=== PATIENT | female | born 1940 | race American Indian/Alaskan Native ===

== ENCOUNTER 2017-12-04 19:08 | Emergency (ER) | payer MEDICARE, OTHER ==
[2017-12-04 19:53] VITALS: BP 118/68
--- NOTE | 2017-12-04 20:58 | EDM.PDOC ---
ED HPI GENERAL MEDICAL PROBLEM - General Chief Complaint: Genitourinary Problem Stated Complaint: BLOOD IN CATHETER Time Seen by Provider: 12/04/17 20:45 Source of Information: Reports: Patient History Limitations: Reports: No Limitations - History of Present Illness INITIAL COMMENTS - FREE TEXT/NARRATIVE: This 77 yo female patient reports to the ED from the [facility] due to blood in her urine. The patient reports she has been reporting to the [facility] staff that her catheter has not been draining. Finally (after 12 hours), the patient's catheter was flushed and blood was discovered in her urine. The patient is on Doxycycline for UTI's. The patient reports she has been dealing with the UTI for months, but has not had any resolution of her symptoms. Onset: Today Duration: Constant Location: Reports: Other Quality: Reports: Other Severity: Moderate Improves with: Reports: None Worsens with: Reports: None Associated Symptoms: Reports: No Other Symptoms Left Lower Abdomen Pain Score (Numeric/FACES): 2 - Related Data Allergies Allergy/AdvReac Type Severity Reaction Status Date / Time doxycycline Allergy Intermediate UNKNOWN Verified 11/19/16 18:07 tetracycline Allergy Intermediate UNKNOWN Verified 11/19/16 18:07 amoxicillin Allergy Mild UNKNOWN Verified 11/19/16 18:07 furosemide [From Lasix] Allergy Mild UNKNOWN Verified 11/19/16 18:07 Penicillins Allergy Mild Hives Verified 11/19/16 18:07 phenytoin Allergy Mild UNKNOWN Verified 11/19/16 18:07 simvastatin Allergy Mild UNKNOWN Verified 11/19/16 18:07 Sulfa (Sulfonamide Allergy Mild unknown Verified 11/19/16 18:07 Antibiotics) Corticosteroids Allergy Unknown unknown Verified 11/19/16 18:07 (Glucocorticoids) ibuprofen AdvReac Intermediate ANXIETY, Verified 11/19/16 18:07 INTOLERANCE meperidine HCl [From Demerol] AdvReac Intermediate CONFUSION, Verified 11/19/16 18:07 INTOLERANCE morphine AdvReac Intermediate Change Verified 11/19/16 18:07 Mental Status propoxyphene HCl AdvReac Intermediate CONFUSION, Verified 11/19/16 18:07 [From Darvon] INTOLERANCE zolpidem [From Ambien] AdvReac Intermediate unknown Verified 11/19/16 18:07 erythromycin Allergy Intermediate UNKNOWN Uncoded 11/19/16 18:07 nitrofurantoin monohydrate Allergy Intermediate UNKNOWN Uncoded 11/19/16 18:07 macrocry codeine phosphate AdvReac Intermediate CONFUSION, Uncoded 11/19/16 18:07 INTOLERANCE naproxen sodium AdvReac Mild ANXIETY, Uncoded 11/19/16 18:07 INTOLERANCE propoxyphene hcl AdvReac CONFUSION, Uncoded 11/19/16 18:00 INTOLERANCE Home Meds: Home Meds Acetaminophen [Tylenol] 650 mg PO Q6H PRN MDD 2 PRN doses 04/29/16 [History] Metoprolol Tartrate [Lopressor] 12.5 mg PO BID 04/29/16 [History] Pantoprazole [ProTONIX] 40 mg PO BIDAC 04/29/16 [History] atorvaSTATin [Lipitor] 20 mg PO BEDTIME 04/29/16 [History] Acetaminophen [Tylenol] 650 mg PO TID 11/19/16 [History] Trolamine Salicylate/Aloe Vera [Aspercreme 10% Cream] 1 applic TOP BID 11/19/16 [History] Warfarin [Coumadin] 1.25 mg PO .MONFRI 11/19/16 [History] Warfarin [Coumadin] 2.5 mg PO .SUNTUWEDTHSAT 11/19/16 [History] Past Medical History HEENT History: Reports: Cataract Cardiovascular History: Reports: Afib, Arrhythmia, Blood Clots/VTE/DVT, Heart Failure Respiratory History: Reports: PE, SOB Gastrointestinal History: Reports: GERD, Hepatitis Genitourinary History: Reports: UTI, Recurrent [employer] History: Reports: Musculoskeletal History: Reports: Arthritis, Fracture, Osteoporosis Neurological History: Reports: CVA, Other (See Below) Other Neuro History: Left druze stress epilepsy. Psychiatric History: Reports: Anxiety, Depression Other Immunologic History: Hep B - Infectious Disease History Infectious Disease History: Reports: Chicken Pox, Hepatitis B, Measles, Mumps, Rubella, Shingles - Past Surgical History HEENT Surgical History: Reports: Adenoidectomy, Cataract Surgery, Tonsillectomy Cardiovascular Surgical History: Reports: Coronary Artery Stent Other Respiratory Surgeries/Procedures: IVC filter GI Surgical History: Reports: EGD Other Musculoskeletal Surgeries/Procedures:: wrist fracture right, right arm below elbow, toes-no surgery with these. Social & Family History - Family History Family Medical History: Noncontributory - Tobacco Use Smoking Status *Q: Unknown Ever Smoked - Caffeine Use Caffeine Use: Reports: None - Recreational Drug Use Recreational Drug Use: No - Living Situation & Occupation Living situation: Reports: Occupation: Retired ED ROS GENERAL - Review of Systems Review Of Systems: ROS reveals no pertinent complaints other than HPI. ED EXAM, RENAL/ - Physical Exam Exam: See Below Exam Limited By: No Limitations General Appearance: Alert, WD/WN, Mild Distress Eye Exam: Bilateral Eye: EOMI, Normal Inspection, PERRL Ears: Normal External Exam, Normal Canal, Hearing Grossly Normal, Normal TMs Nose: Normal Inspection, Normal Mucosa, No Blood Throat/Mouth: Normal Inspection, Normal Lips, Normal Teeth, Normal Gums, Normal Oropharynx, Normal Voice, No Airway Compromise Head: Atraumatic, Normocephalic Neck: Normal Inspection, Supple, Non-Tender, Full Range of Motion Respiratory/Chest: No Respiratory Distress, Lungs Clear, Normal Breath Sounds, No Accessory Muscle Use, Chest Non-Tender Cardiovascular: Normal Peripheral Pulses, Regular Rate, Rhythm, No Edema, No Gallop, No JVD, No Murmur, No Rub GI/Abdominal: Normal Bowel Sounds, Soft, Non-Tender, No Organomegaly, No Distention, No Abnormal Bruit, No Mass (Female) Exam: Deferred Rectal (Female) Exam: Deferred Back Exam: Normal Inspection, Full Range of Motion, NT Extremities: Normal Inspection, Normal Range of Motion, Non-Tender, Normal Capillary Refill, No Pedal Edema Neurological: Alert Psychiatric: Normal Affect, Normal Mood Skin Exam: Warm, Dry, Intact, Normal Color, No Rash Lymphatic: No Adenopathy Course - Vital Signs Last Recorded V/S: Last Vital Signs Temp 36.8 C 12/04/17 19:50 Pulse 110 H 12/04/17 19:50 Resp 20 12/04/17 19:50 BP 118/68 12/04/17 19:50 Pulse Ox 97 12/04/17 19:50 - Orders/Labs/Meds Orders: Active Orders 24 hr Category Date Time Status CULTURE URINE [RM] Stat Lab 12/04/17 20:40 Ordered UA W/MICROSCOPIC [URIN] Stat Lab 12/04/17 20:40 Ordered Labs: Laboratory Tests 12/04/17 12/04/17 12/04/17 Range/Units 20:40 21:04 21:04 WBC 7.7 (5.0-10.0) 10^3/uL RBC 4.54 (4.2-5.4) 10^6/uL Hgb 11.8 L D (12.0-16.0) g/dL Hct 37.4 (37.0-47.0) % MCV 82.4 (80-100) fL MCH 26.0 L (27.0-34.0) pg MCHC 31.6 L (33.0-35.0) g/dL Plt Count 314 D (150-450) 10^3/uL Neut % (Auto) 54.0 (42.2-75.2) % Lymph % (Auto) 26.1 (20.5-50.1) % Divide % (Auto) 13.7 H (2-8) % Eos % (Auto) 5.5 H (1.0-3.0) % Baso % (Auto) 0.7 (0.0-1.0) % Sodium 133 L (135-145) mmol/L Potassium 4.1 (3.6-5.0) mmol/L Chloride 100 L (101-111) mmol/L Carbon Dioxide 25.0 (21.0-31.0) mmol/L Anion Gap 12.1 BUN 13 (7-18) mg/dL Creatinine 0.6 (0.6-1.3) mg/dL Est Cr Clr Drug Dosing 62.10 mL/min Estimated GFR (MDRD) > 60 BUN/Creatinine Ratio 21.66 Glucose 499 H* (74-105) mg/dL Calcium 9.0 (8.4-10.2) mg/dl Total Bilirubin 1.3 H (0.2-1.0) mg/dL AST 129 H (10-42) IU/L ALT 116 H (10-60) IU/L Alkaline Phosphatase 105 (42-121) IU/L Total Protein 6.4 L (6.7-8.2) g/dl Albumin 3.1 L (3.2-5.5) g/dl Globulin 3.3 Albumin/Globulin Ratio 0.94 Urine Color Light yellow (YELLOW) Urine Appearance Cloudy (CLEAR) Urine pH 6.5 (5.0-9.0) Ur Specific [place] 1.010 (1.005-1.030) Urine Protein 100 H (NEGATIVE) Urine Glucose (UA) 500 H (NEGATIVE) Urine Ketones Negative (NEGATIVE) Urine Occult Blood Moderate H (NEGATIVE) Urine Nitrite Negative (NEGATIVE) Urine Bilirubin Negative (NEGATIVE) Urine Urobilinogen 0.2 (0.2-1.0) mg/dL Ur Leukocyte Esterase Small H (NEGATIVE) Urine RBC >100 H /HPF Urine WBC >100 H (0-5/HPF) /HPF Ur Epithelial Cells Few /HPF Urine Bacteria Many H (0-FEW/HPF) /HPF Departure - Departure Time of Disposition: 22:00 Disposition: Home, Self-Care 01 Condition: Fair Clinical Impression: UTI, Urinary tract infectious disease Hematuria Qualifiers: Hematuria type: unspecified type Qualified Code(s): R31.9 - Hematuria, unspecified - Discharge Information Instructions: Urinary Tract Infection, Adult, [facility]ry[facility] Forms: ED Department Discharge Care Plan Goals: The patient was advised of the examination and lab results during the visit. The patient should continue on her current medications as prescribed. There was a urine culture ordered and the patient's antibiotics may be changed based on the culture results. If the patient has any additional symptoms or concerns, the patient should follow-up with her primary care provider or return to the emergency department. - My Orders Last 24 Hours: My Active Orders 12/04/17 20:40 CULTURE URINE [RM] Stat UA W/MICROSCOPIC [URIN] Stat - Assessment/Plan Last 24 Hours: My Active Orders 12/04/17 20:40 CULTURE URINE [RM] Stat UA W/MICROSCOPIC [URIN] Stat
[2017-12-04 21:34] LABS: CHLORIDE,CL 100 mmol/L (101-111); SODIUM,NA 133 mmol/L (135-145)
== END 2017-12-04 22:31 | disposition home or self-care (01) ==
LOC: DL.ED 19:08
DX: N39.0 Urinary tract infection, site not specified (principal); K21.9 Gastro-esophageal reflux disease without esophagitis; Z88.1 Allergy status to other antibiotic agents; Z88.0 Allergy status to penicillin; Z88.2 Allergy status to sulfonamides; Z88.6 Allergy status to analgesic agent; Z88.8 Allergy status to other drugs, medicaments and biological substances; Z88.5 Allergy status to narcotic agent; Z79.899 Other long term (current) drug therapy
CPT/HCPCS: 36415; 80053; 81001; 85025; 87086; 87088; 87186; 99283

== ENCOUNTER 2019-04-21 06:30 | Day surgery (SDC) | payer MEDICAID ==
[~2019-04-21 06:30] MED LIST: Dextrose 5%-0.45% NaCl 1,000 ML IV SCH; Midazolam 1 MG/ML 2 ML SDV ONE; Sodium Chloride 0.9% 10 ML Syringe FLUSH PRN; fentaNYL 100 MCG/2 ML SDV ONE
[2019-04-21] MEDS ORDERED: Midazolam 1 MG/ML 2 ML SDV IV ONE ×3 (06:31→08:03)
[2019-04-21] MEDS ORDERED: fentaNYL 100 MCG/2 ML SDV IV ONE ×3 (06:31→07:54)
--- NOTE | 2019-04-21 11:20 | OR ---
DATE: 04/21/2019 PROCEDURE: Total colonoscopy. INSTRUMENT USED: PCF-H190DL Olympus video colonoscope. PREMEDICATIONS: Fentanyl 100 mcg intravenous, Versed 2 mg intravenous, nasal O2 cannula. The procedure was done under pulse oximetry, BP recording, and ekg monitor tech. INDICATION: The patient with previous colon cancer surgery and permanent colostomy. Colonoscopic examination is done for detection of any polypoid lesions and removal, endoscopic hemostasis therapy if needed. PROCEDURE IN DETAIL: The colostomy site was found to be unremarkable. The colonoscope was passed with ease up to the ileocecal area. Photographs were taken of the normal-appearing cecum identified by appendiceal orifice and double- bulged ileocecal folds. No bleeding was noted from any of the visualized areas at the commencement of the examination. The bowel preparation was found to be adequate, [place] scale 2 in all the regions. There was moderate amount of liquid as well as some semi-liquid fecal material that had to be aspirated. No stricture. No vascular ectasia. No large isolated ulcerations seen. No evidence of diffuse inflammatory bowel disease in the form of friability, contact bleeding, or ulcerations. No polyp or tumor mass identified. Probing the proximal sides of folds and flexures using adequate distention and clearing up the stool material, withdrawal of the scope was made. No bleeding was noted from any of the visualized areas at the completion of examination. IMPRESSION: Normal study. The patient tolerated the procedure well. [facility] /[id number]
[2019-04-21 13:07] VITALS: BP 139/52; PULSE 78
== END 2019-04-21 12:00 | disposition home or self-care (01) ==
LOC: DL.ENDO 06:30
PROVIDERS: ATTEND Internal Medicine Gastroenterology
DX: R10.9 Unspecified abdominal pain (principal); R14.0 Abdominal distension (gaseous); I25.10 Atherosclerotic heart disease of native coronary artery without angina pectoris; I10 Essential (primary) hypertension; E78.5 Hyperlipidemia, unspecified; G20 Parkinson's disease; M19.90 Unspecified osteoarthritis, unspecified site; N81.4 Uterovaginal prolapse, unspecified; Z93.3 Colostomy status; Z95.5 Presence of coronary angioplasty implant and graft; Z85.038 Personal history of other malignant neoplasm of large intestine
CPT/HCPCS: 82962; G0121; J2250; J3010; J7042

== ENCOUNTER 2021-01-04 07:19 | Emergency (ER) | payer MEDICAID, MEDICARE ==
[2021-01-04] MEDS ORDERED: Succinylcholine 200 MG/10 ML MDV IV ONE (07:20)
[2021-01-04] MEDS ORDERED: EPINEPHrine 1:10,000 1 MG/10 ML Syringe IV ONE (07:20)
[2021-01-04] MEDS ORDERED: Sodium Bicarbonate 8.4% 50 MEQ/50 ML Syringe IV ONE (07:20)
[2021-01-04] MEDS ORDERED: EPINEPHrine 1 MG/ML SDV ONE (07:43)
[2021-01-04 07:49] LABS: PTT,PARTIAL THROMBOPLSTIN TIME 57.5 SEC (22.0-34.0)
[2021-01-04 07:53] LABS: ANION GAP 35.9 mEq/L (7-13); CHLORIDE,CL 100 mmol/L (98-107); SODIUM,NA 142 mmol/L (136-145)
--- NOTE | 2021-01-04 07:59 | EDM.PDOC ---
ED HPI GENERAL MEDICAL PROBLEM - General Chief Complaint: Cardiovascular Problem Stated Complaint: IN BY AMBULANCE Time Seen by Provider: 01/04/21 07:19 Source of Information: Reports: EMS, RN, RN Notes Reviewed History Limitations: Reports: Altered Mental Status - History of Present Illness INITIAL COMMENTS - FREE TEXT/NARRATIVE: Keyanna is an 80 y/o female who presents to the ED via [facility] s/p CPR with ROSC. Per EMS the patient was found in her chair unresponsive by SPIN TABLE OPERATOR who then notified the nurse. CPR was initiated at 0640 with four rounds of Epinephrine; asystole to Sinus Tach. Rapid Response team called while patient en route, including freelance writer, ED RNs, PACKAGE LINE RELIEF OPERATOR, and RT. Weather check performed for [facility]. Upon arrival to this facility, the patient is unresponsive with pupils fixed and dilated. iGel in place to the airway with equal chest rise and appropriate bilateral breath sounds. ST on monitor, with pulse. Patient successfully intubated by PACKAGE LINE RELIEF OPERATOR with equal breath sounds and chest rise. EKG reveals AFib with Q-waves in III and aVF. Mangle Operator Garments [facility]. CPR initiated at 0736. Mangle Operator Garments attempted to reach Daryl, patient's son, to discuss Code Status. ROSC achieved 0741 following two rounds of Epinephrine. Patient again ST with a femoral and carotid pulse. EPI gtt initiated at 5. CPR again initiated at 0751. Mangle Operator Garments again attempted to reach Daryl, patient's son to discuss Code Status. ROSC achieved 0756 following one round of Epinephrine. ST with femoral and carotid pulse. Patient's pulse again decreased from ST to SB and then PEA. Patient remains fixed and dilated. WBC 48, Lactic Acid 22, Troponin 96, BNP 2570. Purulent drainage from Munroe catheter. - Related Data Allergies Allergy/AdvReac Type Severity Reaction Status Date / Time doxycycline Allergy Intermediate UNKNOWN Verified 04/21/19 07:09 tetracycline Allergy Intermediate Other Verified 04/21/19 07:09 amoxicillin Allergy Mild Other Verified 04/21/19 07:09 furosemide [From Lasix] Allergy Mild Other Verified 04/21/19 07:09 Penicillins Allergy Mild Hives Verified 04/21/19 07:09 phenytoin Allergy Mild UNKNOWN Verified 04/21/19 07:09 simvastatin Allergy Mild UNKNOWN Verified 04/21/19 07:09 Sulfa (Sulfonamide Allergy Mild Rash Verified 04/21/19 07:09 Antibiotics) Corticosteroids Allergy Unknown unknown Verified 04/21/19 07:09 (Glucocorticoids) ciprofloxacin Allergy Other Verified 04/21/19 07:09 ibuprofen AdvReac Intermediate ANXIETY, Verified 04/21/19 07:09 INTOLERANCE meperidine HCl [From Demerol] AdvReac Intermediate CONFUSION, Verified 04/21/19 07:09 INTOLERANCE morphine AdvReac Intermediate Change Verified 04/21/19 07:09 Mental Status propoxyphene HCl AdvReac Intermediate CONFUSION, Verified 04/21/19 07:09 [From Darvon] INTOLERANCE zolpidem [From Ambien] AdvReac Intermediate Confusion Verified 04/21/19 07:09 erythromycin Allergy Intermediate Other Uncoded 04/21/19 07:09 nitrofurantoin monohydrate Allergy Intermediate UNKNOWN Uncoded 04/21/19 07:09 macrocry POTASSIUM CONTAINING Allergy Other Uncoded 04/21/19 07:09 COMPOUNDS codeine phosphate AdvReac Intermediate CONFUSION, Uncoded 04/21/19 07:09 INTOLERANCE naproxen sodium AdvReac Mild ANXIETY, Uncoded 04/21/19 07:09 INTOLERANCE propoxyphene hcl AdvReac CONFUSION, Uncoded 04/21/19 07:09 INTOLERANCE Home Meds: Home Meds Acetaminophen [Tylenol] 650 mg PO Q6H PRN MDD 2 PRN doses 04/29/16 [History] Metoprolol Tartrate [Lopressor] 50 mg PO BID 04/29/16 [History] Pantoprazole [ProTONIX] 40 mg PO DAILY 04/29/16 [History] atorvaSTATin [Lipitor] 20 mg PO BEDTIME 04/29/16 [History] Acetaminophen [Tylenol] 650 mg PO TID 11/19/16 [History] Trolamine Salicylate/Aloe Vera [Aspercreme 10% Cream] 1 applic TOP BID 11/19/16 [History] Albuterol [Proventil Neb Soln] 1 vial INH Q3H PRN 04/20/19 [History] Bumetanide 2 mg PO DAILY 04/20/19 [History] Calcium Carbonate [Tums] 2 tab PO Q8H 04/20/19 [History] Camphor/Menthol [Sarna Lotion] 1 applic TOP ASDIRECTED PRN 04/20/19 [History] Clotrimazole/Betamethasone Dip [Lotrisone Cream] 1 applic TOP ASDIRECTED PRN 04/20/19 [History] Fluoride (Sodium) [Prevident] 1 applic .ROUTE BID 04/20/19 [History] Folic Acid 800 mcg PO DAILY 04/20/19 [History] Hypromellose [Systane Gel] 1 applic OP ASDIRECTED 04/20/19 [History] Insulin Degludec [Tresiba] 8 units INJECT BEDTIME 04/20/19 [History] Magnesium Hydroxide [Milk of Magnesia] 10 ml PO DAILY PRN 04/20/19 [History] Ondansetron [Ondansetron ODT] 4 mg PO ASDIRECTED PRN 04/20/19 [History] Oxybutynin Chloride [Ditropan Xl] 10 mg PO DAILY 04/20/19 [History] Potassium Chloride [K-Tab ER] 20 meq PO DAILY 04/20/19 [History] Propylene Glycol/PEG 400/Pf [Systane 0.3-0.4% Eye Drop] 1 applic EYEBOTH BID 04/20/19 [History] Pyridoxine HCl (Vitamin B6) [Vitamin B-6] 100 mg PO DAILY 04/20/19 [History] glipiZIDE [Glucotrol] 5 mg PO BID 04/20/19 [History] Warfarin Sodium [Coumadin] 1.25 mg PO DAILY 04/21/19 [History] Past Medical History HEENT History: Reports: Cataract Cardiovascular History: Reports: Afib, Arrhythmia, Blood Clots/VTE/DVT, CAD, Heart Failure, High Cholesterol, Hypertension, Pulmonary Hypertension, Other (See Below) Other Cardiovascular History: hx of edema Respiratory History: Reports: PE, SOB, Other (See Below) 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 Psychiatric History: Reports: Anxiety, Depression Endocrine/Metabolic History: Reports: Diabetes, Type II Hematologic History: Reports: Anemia Other Immunologic History: Hep B Oncologic (Cancer) History: Reports: Lung Dermatologic History: Reports: Other (See Below) Other Dermatologic History: Hx of contact dermatitis. Hx of local infection of the skin and subcutaneous tissue - Infectious Disease History Infectious Disease History: Reports: Chicken Pox, Hepatitis B, Measles, Mumps, Rubella, Shingles - Past Surgical History HEENT Surgical History: Reports: Adenoidectomy, Cataract Surgery, Tonsillectomy Cardiovascular Surgical History: Reports: Coronary Artery Stent Other Cardiovascular Surgeries/Procedures: March 31 2008 Other Respiratory Surgeries/Procedures: IVC filter GI Surgical History: Reports: Colonoscopy, Colostomy, EGD, Other (See Below) Other GI Surgeries/Procedures: SIGMOID COLON RESECTION, PERMANENT COLOSTOMY Other Musculoskeletal Surgeries/Procedures:: wrist fracture right, right arm below elbow, toes-no surgery with these. Social & Family History - Family History Family Medical History: No Pertinent Family History - Caffeine Use Caffeine Use: Reports: None - Living Situation & Occupation Living situation: Reports: Occupation: Retired ED ROS GENERAL - Review of Systems Review Of Systems: Unable To Obtain Reason Not Obtained: AMS; Post-Code ED EXAM, GENERAL - Physical Exam Exam: See Below Exam Limited By: Altered Mental Status General Appearance: Other (Intubated) Eye Exam: Bilateral Eye: Abnormal EOM (Pupils fixed and dilated) Ears: Normal External Exam Nose: Normal Inspection, Normal Mucosa, No Blood Throat/Mouth: Other (Intubated). No: Normal Oropharynx (Dry mucous membranes) Head: Atraumatic, Normocephalic Neck: Normal Inspection Respiratory/Chest: Lungs Clear, Other (Intubated). No: Crackles, Rales, Rhonchi, Wheezing Cardiovascular: No Gallop, No JVD, No Murmur, No Rub, Tachycardia, Other (Carotid and femoral pulse). No: Normal Peripheral Pulses (Absent), No Edema Peripheral Pulses: 0: Radial (L), Radial (R), Dorsalis Pedis (L), Dorsalis Pedis (R), 2+: Carotid (L), Carotid (R), Femoral (L), Femoral (R) GI/Abdominal: Abnormal Bowel Sounds (Hypoactive), Other (Ostomy to left abdomen) (Female) Exam: Other (Munroe catheter in place; Purulent drainage from catheter) Rectal (Female) Exam: Deferred Back Exam: Normal Inspection Extremities: Pedal Edema (+1 pitting, bilaterally), Slow Capillary Refill, Mottled Neurological: Unresponsive, Abnormal Reflexes Skin Exam: Mottled Course - Orders/Labs/Meds Orders: Active Orders 24 hr Category Date Time Status Chest 1V Frontal [CR] Stat Exams 01/04/21 07:22 Taken B-TYPE NATRIURETIC PEPTIDE,BNP [CHEM] Stat Lab 01/04/21 07:24 Results COMPREHENSIVE METABOLIC PN,CMP [CHEM] Stat Lab 01/04/21 07:24 Results Gonsales [CORONAVIRUS COVID-19 CASI] [MOLEC] Stat Lab 01/04/21 07:49 Ordered DRUG SCREEN URINE BIORAD [URCHEM] Urgent Lab 01/04/21 07:25 Ordered ETHANOL BLOOD MEDICAL [CHEM] Stat Lab 01/04/21 07:24 Results MAGNESIUM [CHEM] Stat Lab 01/04/21 07:24 Results REFLEX LACTIC ACID YES OR NO [CHEM] Routine Lab 01/04/21 08:10 Received TROPONIN I HIGH SENSITIVITY [CHEM] Stat Lab 01/04/21 07:24 Results Vancomycin 1.25 gm Med 01/04/21 07:46 Active Sodium Chloride 0.9% [Normal Saline (AdvBag)] 250 ml IV ONETIME Medication Orders Vancomycin HCl 1.25 gm/ Sodium (Chloride) 250 mls @ 167 mls/hr IV ONETIME ONE Stop: 01/04/21 09:15 Labs: Laboratory Tests 01/04/21 01/04/21 01/04/21 Range/Units 07:24 07:24 07:24 WBC 48.0 H* (5.0-10.0) 10^3/uL RBC 3.79 L (4.2-5.4) 10^6/uL Hgb 8.8 L D (12.0-16.0) g/dL Hct 30.7 L (37.0-47.0) % MCV 81.0 (80-100) fL MCH 23.2 L (27.0-34.0) pg MCHC 28.7 L (33.0-35.0) g/dL Plt Count 263 (150-450) 10^3/uL Neut % (Auto) 85.0 H (42.2-75.2) % Lymph % (Auto) 11.1 L (20.5-50.1) % Hart % (Auto) 3.6 (2-8) % Eos % (Auto) 0.1 L (1.0-3.0) % Baso % (Auto) 0.2 (0.0-1.0) % Add Manual Diff Yes Neutrophils % (Manual) 59 (42-75) % Band Neutrophils % 19 % Lymphocytes % (Manual) 13 L (20-50) % Monocytes % (Manual) 1 L (2-8) % Metamyelocytes % 6 Myelocytes % 1 Blast Cells % 1 Microcytosis 1+ slight PT 25.5 H D (9.0-12.0) SEC INR 2.6 H (0.9-1.2) APTT 57.5 H (22.0-34.0) SEC Sodium 142 (136-145) mmol/L Potassium 5.9 H (3.5-5.1) mmol/L Chloride 100 (98-107) mmol/L Carbon Dioxide 12 L (21-32) mmol/L Anion Gap 35.9 H (7-13) mEq/L BUN 40 H (7-18) mg/dL Creatinine 3.91 H (0.55-1.02) mg/dL Est Cr Clr Drug Dosing TNP Estimated GFR (MDRD) 11 BUN/Creatinine Ratio 10.2 (No establ ref range) Glucose 140 H (70-99) mg/dL Lactic Acid (0.4-2.0) mmol/L Calcium 9.2 (8.5-10.1) mg/dL Magnesium 2.7 H (1.8-2.4) mg/dL Total Bilirubin 1.3 H (0.2-1.0) mg/dL AST 388 H (15-37) U/L Alkaline Phosphatase 433 H (46-116) U/L Troponin I High Sens 96 H* (<=51) pg/mL B-Natriuretic Peptide 2570 H (0-100) pg/ml Total Protein 6.7 (6.4-8.2) g/dL Albumin 2.1 L (3.4-5.0) g/dL Globulin 4.6 Albumin/Globulin Ratio 0.46 Ethyl Alcohol < 3 (0) mg/dL // Range/Units 07:24 WBC (5.0-10.0) 10^3/uL RBC (4.2-5.4) 10^6/uL Hgb (12.0-16.0) g/dL Hct (37.0-47.0) % MCV (80-100) fL MCH (27.0-34.0) pg MCHC (33.0-35.0) g/dL Plt Count (150-450) 10^3/uL Neut % (Auto) (42.2-75.2) % Lymph % (Auto) (20.5-50.1) % Hart % (Auto) (2-8) % Eos % (Auto) (1.0-3.0) % Baso % (Auto) (0.0-1.0) % Add Manual Diff Neutrophils % (Manual) (42-75) % Band Neutrophils % % Lymphocytes % (Manual) (20-50) % Monocytes % (Manual) (2-8) % Metamyelocytes % Myelocytes % Blast Cells % Microcytosis PT (9.0-12.0) SEC INR (0.9-1.2) APTT (22.0-34.0) SEC Sodium (136-145) mmol/L Potassium (3.5-5.1) mmol/L Chloride (98-107) mmol/L Carbon Dioxide (21-32) mmol/L Anion Gap (7-13) mEq/L BUN (7-18) mg/dL Creatinine (0.55-1.02) mg/dL Est Cr Clr Drug Dosing Estimated GFR (MDRD) BUN/Creatinine Ratio (No establ ref range) Glucose (70-99) mg/dL Lactic Acid 22.0 H* (0.4-2.0) mmol/L Calcium (8.5-10.1) mg/dL Magnesium (1.8-2.4) mg/dL Total Bilirubin (0.2-1.0) mg/dL AST (15-37) U/L Alkaline Phosphatase (46-116) U/L Troponin I High Sens (<=51) pg/mL B-Natriuretic Peptide (0-100) pg/ml Total Protein (6.4-8.2) g/dL Albumin (3.4-5.0) g/dL Globulin Albumin/Globulin Ratio Ethyl Alcohol (0) mg/dL Meds: Medications Generic Name Dose Route Start Last Admin Trade Name Freq PRN Reason Stop Dose Admin Vancomycin HCl 1.25 gm/ Sodium 250 mls @ 167 mls/hr 01/04/21 07:46 Chloride IV 01/04/21 09:15 ONETIME ONE Discontinued Medications Generic Name Dose Route Start Last Admin Trade Name Coral PRN Reason Stop Dose Admin Epinephrine HCl Confirm 01/04/21 07:43 Epinephrine 1 Mg/Ml Sdv Administered 01/04/21 07:44 Dose 1 mg .ROUTE .STK-MED ONE - Re-Assessments/Exams Free Text/Narrative Re-Assessment/Exam: 01/04/21 Reasonable attempts at resuscitation unsuccessful; patient unstable for transfer. Following loss of pulse at 0807, CPR was not again initiated. PEA on monitor. No heart tones appreciated by freelance writer. TOD called at [phone]. Departure - Departure Time of Disposition: 08:10 Disposition: 20 Clinical Impression: Cardiac arrest Sepsis Qualifiers: Sepsis type: sepsis due to unspecified organism Sepsis acute organ dysfunction status: unspecified Qualified Code(s): A41.9 - Sepsis, unspecified organism Forms: ED Department Discharge - My Orders Last 24 Hours: My Active Orders 01/04/21 07:22 Chest 1V Frontal [CR] Stat 01/04/21 07:24 B-TYPE NATRIURETIC PEPTIDE,BNP [CHEM] Stat COMPREHENSIVE METABOLIC PN,CMP [CHEM] Stat ETHANOL BLOOD MEDICAL [CHEM] Stat MAGNESIUM [CHEM] Stat TROPONIN I HIGH SENSITIVITY [CHEM] Stat 01/04/21 07:25 DRUG SCREEN URINE BIORAD [URCHEM] Urgent 01/04/21 07:46 Vancomycin 1.25 gm Sodium Chloride 0.9% [Normal Saline (AdvBag)] 250 ml IV ONETIME 01/04/21 07:49 Gonsales [CORONAVIRUS COVID-19 CASI] [MOLEC] Stat 01/04/21 08:10 REFLEX LACTIC ACID YES OR NO [CHEM] Routine - Assessment/Plan Last 24 Hours: My Active Orders 01/04/21 07:22 Chest 1V Frontal [CR] Stat 01/04/21 07:24 B-TYPE NATRIURETIC PEPTIDE,BNP [CHEM] Stat COMPREHENSIVE METABOLIC PN,CMP [CHEM] Stat ETHANOL BLOOD MEDICAL [CHEM] Stat MAGNESIUM [CHEM] Stat TROPONIN I HIGH SENSITIVITY [CHEM] Stat 01/04/21 07:25 DRUG SCREEN URINE BIORAD [URCHEM] Urgent 01/04/21 07:46 Vancomycin 1.25 gm Sodium Chloride 0.9% [Normal Saline (AdvBag)] 250 ml IV ONETIME 01/04/21 07:49 Gonsales [CORONAVIRUS COVID-19 CASI] [MOLEC] Stat 01/04/21 08:10 REFLEX LACTIC ACID YES OR NO [CHEM] Routine
--- NOTE | 2021-01-04 09:13 | CR ---
PROCEDURE INFORMATION: Exam: XR Chest Exam date and time: 01/04/2021 7:44 AM Age: 80 years old Clinical indication: Device placement; Ett placement (vent status); Patient HX: History of lung mass lesions; Additional info: Unresponsive, tube placement TECHNIQUE: Imaging protocol: XR of the chest. Views: 1 view. COMPARISON: CT Chest wo Cont 03/31/2019 1:32 PM FINDINGS: Tubes, catheters and devices: Endotracheal tube with tip just above the laurie. Enteric tube with tip directed toward the left lower abdomen, with the tip below the field of view. Lungs: Two large masses are seen in the right lung and a single large mass is seen in left lung base. These have increased in size since the CT of 03/31/2019. The largest lesion on the right is adjacent to the posterior hilum and measures approximately 6.8 cm. It measured approximately [address] The lesion in the left lung base measures approximately 6.6 cm today compared with [address] Pleural spaces: Unremarkable. No pleural effusion. No pneumothorax. Heart/Mediastinum: Unremarkable. No cardiomegaly. Vasculature: Aortic calcifications. Bones/joints: The bones are demineralized and there is degenerative arthritis in the spine and shoulders.. Other findings: Shallow inspiration. IMPRESSION: 1. Enteric tube and endotracheal tube in appropriate position. 2. 2 large right and 1 large left pulmonary masses, increased since 03/31/2019 and suspicious for malignancy
== END 2021-01-04 08:09 | disposition expired ==
LOC: DL.ED 07:19
DX: I46.9 Cardiac arrest, cause unspecified (principal); A41.9 Sepsis, unspecified organism; I48.91 Unspecified atrial fibrillation; I11.0 Hypertensive heart disease with heart failure; I50.9 Heart failure, unspecified; E78.00 Pure hypercholesterolemia, unspecified; I25.10 Atherosclerotic heart disease of native coronary artery without angina pectoris; E11.9 Type 2 diabetes mellitus without complications; Z79.4 Long term (current) use of insulin; Z79.899 Other long term (current) drug therapy; Z88.0 Allergy status to penicillin; Z88.1 Allergy status to other antibiotic agents; Z88.2 Allergy status to sulfonamides; Z88.8 Allergy status to other drugs, medicaments and biological substances; Z88.6 Allergy status to analgesic agent; Z88.5 Allergy status to narcotic agent
CPT/HCPCS: 31500; 36415; 71045; 80053; 80307; 83605; 83735; 83880; 84484; 85025; 85610; 85730; 92950; 99285; J0171; J0330; J7050